=== PATIENT | female | born 1955 | race African-American/Black ===

== ENCOUNTER → 2020-08-03 | Outpatient (CLI) | payer OTHER ==
[~2020-08-03] MED LIST: FAMOTIDINE40 MG PO; IBUPROFEN 800800 M1 PO; LIPITOR 40 MG T40 M1 PO; LOSARTAN POTASS50 MG PO; METFORMIN HCL1000 MG PO; SYNTHROID100 MC1 PO; TRAMADOL 50 MG50 MG PO; TURMERIC500 M2 PO; VITAMIN B-121000 MC3 PO; VITAMIN B-12500 MC5 PO; VITAMIN D325 MC5 PO; XYZAL5 MG PO
== END ==
LOC: LAB 14:28
PROVIDERS: ATTEND Orthopaedic Surgery Foot and Ankle Surgery
DX: Z01.812 Encounter for preprocedural laboratory examination (principal); Z20.822 Contact with and (suspected) exposure to COVID-19

== ENCOUNTER 2020-08-07 06:13 | Day surgery (SDC) | payer OTHER ==
[~2020-08-07] VITALS: Ht 172.7 cm; Wt 111.6 kg
--- NOTE | ~2020-08-07 | O ---
[facility] [place] [address] [place] [address] OPERATIVE REPORT Name: ROCIO ESPINO Room #: 150-2 [facility] M..#: [id number] Admission: 08/07/20 Attend Phys: Dylon Emery MD Discharge: Date of : 51 Report #: [id number] THIS REPORT FOR: cc: Gabby Corbett MD, Teresa MD Kneidel,Dylon Fuller MD ~ DATE OF SERVICE: 08/07/2020 PREOPERATIVE DIAGNOSIS: Left foot flatfoot deformity. POSTOPERATIVE DIAGNOSIS: Left foot flatfoot deformity. PROCEDURE: Left foot triple arthrodesis. SURGEON: Dr. Dylon Emery. VP PATIENT: Nubia Carvalho. ANESTHESIA: General. ESTIMATED BLOOD LOSS: Minimal. DRAINS: No drains. TOURNIQUET TIME: 90 minutes. DESCRIPTION OF PROCEDURE: The patient brought to the operating room where she was placed under general anesthesia. Once under adequate general anesthesia, her left lower extremity was prepped and draped in sterile manner. The extremity was elevated, exsanguinated and a tourniquet placed to 300 mmHg. A lateral incision overlying the subtalar and calcaneocuboid joints was made approximately 8 cm in length. There was a lipomatous mass that was directly beneath this proximally, which was free from the surrounding tissue and then subsequently excised bluntly with a hemostat and a pair of tenotomy scissors. This was approximately 3 cm in diameter. The lateral joint capsule to the subtalar joint extending distally through the extensor digitorum brevis and exposing the calcaneocuboid joint was then made. This was dissected down through this into the joints. Any soft tissue in the subtalar joint was removed with a rongeur. 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 Any remaining cartilage was removed utilizing curettes, osteotomes and a rongeur as well as a bur to get to good bleeding subchondral bone at the subtalar joint and the calcaneocuboid joint. Once this was completed, we made a dorsal incision between the extensor hallucis longus and the anterior tibialis with dissection down to the dorsal talonavicular joint. This incision was brought to approximately 5 cm in length. [address] [address] OPERATIVE REPORT Name: ROCIO ESPINO Room #: 150-2 [facility]..#: [id number] Admission: 08/07/20 Attend Phys: Dylon Emery MD Discharge: Date of : 51 Report #: [id number] Dissection was carried down to the joint, which was then exposed and prepared in a similar fashion as the subtalar and calcaneocuboid joints with osteotomes, curettes and a rongeur and a jacob to good bleeding subchondral bone. Once these were all prepared, Signafuse allograft was placed in the subtalar joint and fixation then utilizing fluoroscopy for guidance was achieved with 2 screws from dorsal to plantar across the subtalar joint. These were 7.3 mm cannulated screws. Excellent fixation and alignment was achieved as verified under fluoroscopy. Signafuse graft was then placed in the talonavicular and calcaneocuboid joints and fixation there was then achieved with 3 screws in each. These were 4.5 mm cannulated screws placed under fluoroscopic guidance, two compressive screws across the talonavicular joint and a single fully threaded screw as well. Across the calcaneocuboid joint, three fully threaded screws were placed with excellent fixation and alignment achieved. Once complete, the wounds were irrigated copiously and closed with 2-0 Vicryl in the deep and subcutaneous tissues and xochitl were used for the skin. The wounds were dressed with Xeroform, 4 x 4s, and a sterile soft compressive dressing along with a short leg cast was placed. Tourniquet was let down at 90 minutes. Toes were pink and warm with good capillary refill. There were no complications from the procedure. The patient tolerated the procedure well and went to the recovery room without incident. By: [id number] [id number] Dylon Emery MD /vivek
--- NOTE | 2020-08-07 07:38 | EKG ---
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
[2020-08-07 07:54] VITALS: BP 136/60
[2020-08-07] MEDS ORDERED: PERCOCET 7.5-31 EAC1 PO (09:56)
[2020-08-07] MEDS ORDERED: ASPIR-TRIN325 MG PO (09:56)
[2020-08-07 10:21] VITALS: BP 136/60
== END 2020-08-07 11:40 | disposition home or self-care (01) ==
LOC: OR 06:13 → TBA 06:13 → OR 08:37 → EDSTATUS 09:40 → OR 09:55
PROVIDERS: ATTEND Orthopaedic Surgery Foot and Ankle Surgery
DX: M21.42 Flat foot [pes planus] (acquired), left foot (principal); I10 Essential (primary) hypertension; E78.00 Pure hypercholesterolemia, unspecified; E11.9 Type 2 diabetes mellitus without complications; K21.9 Gastro-esophageal reflux disease without esophagitis; E03.9 Hypothyroidism, unspecified; Z98.890 Other specified postprocedural states; Z79.899 Other long term (current) drug therapy; Z96.651 Presence of right artificial knee joint; Z87.891 Personal history of nicotine dependence; Z79.82 Long term (current) use of aspirin; Z88.0 Allergy status to penicillin
CPT/HCPCS: 50010; 50101; 50386; 50679; 51014; 51412; 53341; 53400; 56524; 57091; 57180; 62110; 62900; 70005